=== PATIENT | female | born 1975 | race Caucasian/White ===

== ENCOUNTER 2016-07-02 13:14 | Observation (INO) | payer SELFPAY ==
[2016-07-02 13:52] VITALS: BMI 30.4
[2016-07-02 14:10] LABS: ALL NEG? NO
[2016-07-02 14:13] LABS: MPV 9.3 fL (7.4-10.4)
[2016-07-02 14:30] LABS: MDMA* NEG (NEGATIVE); METHAMPHETAMINES NEG (NEGATIVE); OXYCODONE NEG (NEGATIVE)
[2016-07-02 14:31] LABS: LEUKOCYTES/URINE NEG (NEGATIVE); NITRITE/URINE NEG (NEGATIVE); SEG NEUTROPHIL 61 % (45-76); TOTAL CELL COUNT 100; URINE OCCULT BLOOD NEG (NEG/TRACE)
[2016-07-02 14:32] LABS: RBC/URINE 0-2 (0-5); WBC/URINE 0-2 (0-5)
[2016-07-02 14:52] LABS: BLOOD UREA NITROGEN 10 MG/DL (7-17); CALCIUM 8.7 MG/DL (8.4-10.2); CALCULATED OSMOLALITY 270 MOs/Kg (270-290); CHLORIDE 105 mEq/L (98-107); ETOH-MGDL < 10 mg/dL; GLUCOSE 140 MG/DL (70-99); SODIUM LEVEL 140 mEq/L (137-146); TOTAL PROTEIN 7.9 G/DL (6.3-8.2)
[2016-07-02] MEDS ORDERED: ZOLPIDEM TARTRATE 5 MG TAB PO PRN (15:15)
[2016-07-02] MEDS ORDERED: LORAZEPAM 1 MG TAB PO PRN (15:15)
[2016-07-02] MEDS ORDERED: GUAIFENESIN 200 MG/10 ML UDC PO PRN (15:15)
[2016-07-02] MEDS ORDERED: Docusate Sodium 100 MG CAP PO PRN (15:15)
[2016-07-02] MEDS ORDERED: MAGNESIUM HYDROXIDE 30 ML BOTTLE PO PRN (15:15)
[2016-07-02] MEDS ORDERED: ONDANSETRON HCL 4 MG ODT TAB PO PRN (15:15)
[2016-07-02] MEDS ORDERED: ACETAMINOPHEN 325 MG/TAB TABLET PO PRN (15:15)
--- NOTE | 2016-07-02 15:15 | EDPRACDOC ---
- General Information Chief Complaint: Psychiatric Illness Stated Complaint: PSYCH EVAL Time Seen by Provider: 07/02/16 14:34 Information Source: Patient Mode of Arrival: Car Home Medications: Home Medications Azithromycin [Zithromax] 0 mg PO DAILY #6 tablet 08/28/15 Fluoxetine HCl [Prozac] 40 mg PO DAILY 08/28/15 Guaifenesin-Codeine [Robitussin AC] 10 ml PO Q6-8H 5 Days 08/28/15 Allergies/Adverse Reactions: Allergies Allergy/AdvReac Type Severity Reaction Status Date / Time aspirin Allergy Hives* Verified 07/02/16 13:52 ibuprofen [From Motrin] Allergy Anaphylaxis Verified 07/02/16 13:52 * - History of Present Illness Onset: 2 WEEKS HPI: PT PRESENTS TODAY WITH SI X 2 WEEKS. PT STATES THAT SHE RECENTLY LOST HER JOB AND THIS CAUSED HER TO BE HOMELESS. REPORTEDLY, PT IS STAYING WITH FRIENDS WHO CALLED [facility] WHEN PT EXPRESSED SI TO THEM. FRIENDS ARE NOT HERE, BUT REPORTEDLY, PT HAS BEEN STEALING PAIN MEDICATION FROM FRIENDS, WHO THEN KICKED PT OUT OF THE HOSPITAL. PT DOES ADMIT TO STEALING MEDICATIONS FROM FRIEND. PT STATES SHE STOLE THEM IN AN ATTEMPT TO OVERDOSE. DENIES HI, HALLUCINATIONS. Reason for Seeking Treatment: Friend Presents With: Reports: Suicidal Ideation Expresses: Reports: Suicidal Plan Suicidal Plan: Reports: Overdose Suicidal Attempt: Reports: N Stressors: Reports: Homeless, Financial Relevant History: Reports: Outpatient Treatment Medication Compliance: No Associated Signs and Symptoms: Reports: Depression, Hopeless ED Past Medical History - History Reviewed Yes Nurses notes reviewed and agree except as marked - Patient Medical History Psychological History: Reports: Depression Surgical History: Reports: Hysterectomy - Social Medical History Smoking Status: Heavy tobacco smoker (5 or more cigarettes/day or daily pipe/ cigar) EDM Review of Systems - Review of Systems ROS Negative Except as Marked: Yes All systems reviewed and were negative except as marked Constitutional: No Symptoms Reported Respiratory: No Symptoms Reported Cardiovascular: No Symptoms Reported Gastrointestinal: No Symptoms Reported Neurological: No Symptoms Reported Musculoskeletal: No Symptoms Reported Integumentary: No Symptoms Reported - Physical Exam Constitutional: Alert (Awake), No apparent distress Oriented to: Time, Person, Place Last recorded Vital Signs: Last Vital Signs Temp 98.3 F 07/02/16 13:49 Pulse 100 07/02/16 13:49 Resp 18 07/02/16 13:49 BP 145/65 07/02/16 13:49 Pulse Ox 96 07/02/16 13:49 Oxygen Pulse Oxygen Saturation 96 O2 Device Room Air Oxygen Flow Rate Fraction of Inspired Oxygen ( FIO2) - HEENT Head: Normal Eye Exam: Normal Oropharynx: Normal Neck: Normal, Denies Pain, Midline - Respiratory/Cardiovascular Respiratory: Normal - CTA Cardiovascular: Normal - GI Auscultation: Normal Palpation: Normal Tenderness: Non tender - Musculoskeletal Back: Normal Extremities: Normal - Integumentary Skin: Normal Lymphatics: Normal - Neurologic Cerebellar: Normal Mood Description: Appropriate, Calm Thought: Coherent Perception: Normal Initial Evaluation Apperance: Neat, Casual, Stated Age Attitude: Cooperative Mood: Euthymic Affect: Congruent w/ mood Insight: Poor Judgement: Poor Memory Description: Intact Depressive Symptoms: Reports: Sadness Hallucinations Severity: Reports: None Hallucinations affecting more than one sensory system: No - Results 07/02/16 13:59 07/02/16 13:59 WBC 21.0 xk/uL (3.8-10.8) H 07/02/16 13:59 RBC 5.36 xM/uL (4.20-5.40) 07/02/16 13:59 Hgb 15.7 g/dL (12.0-16.0) 07/02/16 13:59 Hct 46.4 % (36-47) 07/02/16 13:59 MCV 87 fL (81-99) 07/02/16 13:59 MCH 29.3 pg (27-32) 07/02/16 13:59 MCHC 33.8 g/dl (33-36) 07/02/16 13:59 RDW 13.6 % (11.5-14.5) 07/02/16 13:59 Plt Count 249 xk/uL (130-400) 07/02/16 13:59 MPV 9.3 fL (7.4-10.4) 07/02/16 13:59 Neut % (Auto) Cancelled 07/02/16 13:59 Lymph % (Auto) Cancelled 07/02/16 13:59 Clay % (Auto) Cancelled 07/02/16 13:59 Eos % (Auto) Cancelled 07/02/16 13:59 Baso % (Auto) Cancelled 07/02/16 13:59 Absolute Neuts (auto) Cancelled 07/02/16 13:59 Absolute Lymphs (auto) Cancelled 07/02/16 13:59 Seg Neuts % (Manual) 61 % (45-76) 07/02/16 13:59 Band Neutrophils % 0 % (0-5) 07/02/16 13:59 Lymphocytes % (Manual) 35 % (17-44) 07/02/16 13:59 Monocytes % (Manual) 2 % (0-10) 07/02/16 13:59 Myelocytes % 2 % (0) H 07/02/16 13:59 Absolute Neutrophils 12.81 xk/uL (1.7-8.2) H 07/02/16 13:59 Absolute Lymphocytes 7.35 xk/uL (0.65-4.75) H 07/02/16 13:59 Vacuolated Neuts 1+ 07/02/16 13:59 Toxic Granulation 1+ 07/02/16 13:59 Platelet Estimate Norm (NORMAL) 07/02/16 13:59 RBC Morphology Norm 07/02/16 13:59 Sodium 140 mEq/L (137-146) 07/02/16 13:59 Potassium 3.3 mEq/L (3.5-5.1) L 07/02/16 13:59 Chloride 105 mEq/L (98-107) 07/02/16 13:59 Carbon Dioxide 19 mMOL/L (22-33) L 07/02/16 13:59 Anion Gap 19 mEq/L (8-16) H 07/02/16 13:59 BUN 10 MG/DL (7-17) 07/02/16 13:59 Creatinine 0.80 MG/DL (0.52-1.04) 07/02/16 13:59 Estimated GFR (MDRD) > 60 mL/min (>=60) 07/02/16 13:59 Glucose 140 MG/DL (70-99) H 07/02/16 13:59 Calculated Osmolality 270 MOs/Kg (270-290) 07/02/16 13:59 Calcium 8.7 MG/DL (8.4-10.2) 07/02/16 13:59 Total Bilirubin 0.5 MG/DL (0.2-1.3) 07/02/16 13:59 AST 22 IU/L (14-36) 07/02/16 13:59 ALT 18 IU/L (9-52) 07/02/16 13:59 Alkaline Phosphatase 68 IU/L (38-126) 07/02/16 13:59 Total Protein 7.9 G/DL (6.3-8.2) 07/02/16 13:59 Albumin 4.3 G/DL (3.5-5.0) 07/02/16 13:59 Urine Color Yellow 07/02/16 13:59 Urine Clarity Clear 07/02/16 13:59 Urine pH 5.0 (5.0-8.0) 07/02/16 13:59 Ur Specific [place] 1.015 07/02/16 13:59 Urine Protein Neg (NEG/TRACE) 07/02/16 13:59 Urine Glucose (UA) Neg (NEGATIVE) 07/02/16 13:59 Urine Ketones Neg (NEGATIVE) 07/02/16 13:59 Urine Occult Blood Neg (NEG/TRACE) 07/02/16 13:59 Urine Nitrite Neg (NEGATIVE) 07/02/16 13:59 Urine Bilirubin Neg (NEGATIVE) 07/02/16 13:59 Urine Urobilinogen 0.2 MG/DL (0-1) 07/02/16 13:59 Ur Leukocyte Esterase Neg (NEGATIVE) 07/02/16 13:59 Urine RBC 0-2 (0-5) 07/02/16 13:59 Urine WBC 0-2 (0-5) 07/02/16 13:59 Ur Epithelial Cells 2+ 07/02/16 13:59 Urine Bacteria Few (NEG/FEW) 07/02/16 13:59 Hyaline Casts 0-2 (0-2) 07/02/16 13:59 Urine Mucus Occ (NEG/OCC) 07/02/16 13:59 Urine Opiates Screen *positive* (NEGATIVE) H 07/02/16 13:59 Ur Oxycodone Screen Neg (NEGATIVE) 07/02/16 13:59 Urine Methadone Screen Neg (NEGATIVE) 07/02/16 13:59 Ur Barbiturates Screen Neg (NEGATIVE) 07/02/16 13:59 Ur Tricyclics Screen Neg (NEGATIVE) 07/02/16 13:59 Ur Phencyclidine Scrn Neg (NEGATIVE) 07/02/16 13:59 Ur Amphetamines Screen Neg (NEGATIVE) 07/02/16 13:59 U Methamphetamines Scrn Neg (NEGATIVE) 07/02/16 13:59 Urine MDMA Screen Neg (NEGATIVE) 07/02/16 13:59 U Benzodiazepines Scrn Neg (NEGATIVE) 07/02/16 13:59 Urine Cocaine Screen Neg (NEGATIVE) 07/02/16 13:59 Ur THC Screen Neg (NEGATIVE) 07/02/16 13:59 Plasma/Serum Ethyl Alc % (<0.01) 07/02/16 13:59 Lab Results 07/02/16 07/02/16 07/02/16 13:59 13:59 13:59 WBC 21.0 H RBC 5.36 Hgb 15.7 Hct 46.4 MCV 87 MCH 29.3 MCHC 33.8 RDW 13.6 Plt Count 249 MPV 9.3 Neut % (Auto) Cancelled Lymph % (Auto) Cancelled [place] % (Auto) Cancelled Eos % (Auto) Cancelled Baso % (Auto) Cancelled Absolute Neuts (auto) Cancelled Absolute Lymphs (auto) Cancelled Seg Neuts % (Manual) 61 Band Neutrophils % 0 Lymphocytes % (Manual) 35 Monocytes % (Manual) 2 Myelocytes % 2 H Absolute Neutrophils 12.81 H Absolute Lymphocytes 7.35 H Vacuolated Neuts 1+ Toxic Granulation 1+ Platelet Estimate Norm RBC Morphology Norm Sodium Potassium Chloride Carbon Dioxide Anion Gap BUN Creatinine Estimated GFR (MDRD) Glucose Calculated Osmolality Calcium Total Bilirubin AST ALT Alkaline Phosphatase Total Protein Albumin Urine Color Yellow Urine Clarity Clear Urine pH 5.0 Ur Specific [place] 1.015 Urine Protein Neg Urine Glucose (UA) Neg Urine Ketones Neg Urine Occult Blood Neg Urine Nitrite Neg Urine Bilirubin Neg Urine Urobilinogen 0.2 Ur Leukocyte Esterase Neg Urine RBC 0-2 Urine WBC 0-2 Ur Epithelial Cells 2+ Urine Bacteria Few Hyaline Casts 0-2 Urine Mucus Occ Urine Opiates Screen *positive* H Ur Oxycodone Screen Neg Urine Methadone Screen Neg Ur Barbiturates Screen Neg Ur Tricyclics Screen Neg Ur Phencyclidine Scrn Neg Ur Amphetamines Screen Neg U Methamphetamines Scrn Neg Urine MDMA Screen Neg U Benzodiazepines Scrn Neg Urine Cocaine Screen Neg Ur THC Screen Neg Plasma/Serum Ethyl Alc 07/02/16 13:59 WBC RBC Hgb Hct MCV MCH MCHC RDW Plt Count MPV Neut % (Auto) Lymph % (Auto) [place] % (Auto) Eos % (Auto) Baso % (Auto) Absolute Neuts (auto) Absolute Lymphs (auto) Seg Neuts % (Manual) Band Neutrophils % Lymphocytes % (Manual) Monocytes % (Manual) Myelocytes % Absolute Neutrophils Absolute Lymphocytes Vacuolated Neuts Toxic Granulation Platelet Estimate RBC Morphology Sodium 140 Potassium 3.3 L Chloride 105 Carbon Dioxide 19 L Anion Gap 19 H BUN 10 Creatinine 0.80 Estimated GFR (MDRD) > 60 Glucose 140 H Calculated Osmolality 270 Calcium 8.7 Total Bilirubin 0.5 AST 22 ALT 18 Alkaline Phosphatase 68 Total Protein 7.9 Albumin 4.3 Urine Color Urine Clarity Urine pH Ur Specific [place] Urine Protein Urine Glucose (UA) Urine Ketones Urine Occult Blood Urine Nitrite Urine Bilirubin Urine Urobilinogen Ur Leukocyte Esterase Urine RBC Urine WBC Ur Epithelial Cells Urine Bacteria Hyaline Casts Urine Mucus Urine Opiates Screen Ur Oxycodone Screen Urine Methadone Screen Ur Barbiturates Screen Ur Tricyclics Screen Ur Phencyclidine Scrn Ur Amphetamines Screen U Methamphetamines Scrn Urine MDMA Screen U Benzodiazepines Scrn Urine Cocaine Screen Ur THC Screen Plasma/Serum Ethyl Alc - Additional Information Additional Information: PT EVALUATED BY YESSY AND IT IS FELT THAT PT IS MALINGERING D/T HOMELESSNESS. Decision Time to Discharge: 15:38 - Departure Disposition: Home Condition: Good Final Diagnosis: Opiate abuse, episodic, Malingering
[2016-07-02] MEDS ORDERED: NICOTINE 21 MG PATCH TOP SCH (16:00)
--- NOTE | 2016-07-02 17:43 | TUDEPART ---
Time Seen By Provider: 17:44 Disposition: [facility] [place] Condition: Stable Instructions: Narcotic Abuse (DC) Education/Counseling Given To: Patient Education/Counseling Given Regarding: Diagnosis, Treatment, Prognosis, Follow Up Follow-up / Referrals: None,No Provider [Primary Care Provider] - One Week - Physical Exam Constitutional: Alert (Awake), No apparent distress Oriented to: Time, Person, Place Last recorded Vital Signs: Last Vital Signs Temp 97.4 F L 07/02/16 15:47 Pulse 87 07/02/16 15:47 Resp 20 07/02/16 15:47 BP 121/80 07/02/16 15:47 Pulse Ox 96 07/02/16 15:47 Oxygen Pulse Oxygen Saturation 96 O2 Device Oxygen Flow Rate Fraction of Inspired Oxygen ( FIO2) - HEENT Head: Normal Eye Exam: Normal Oropharynx: Normal - Respiratory/Cardiovascular Respiratory: Normal - CTA Cardiovascular: Normal - GI Auscultation: Normal Palpation: Normal Tenderness: Non tender - Musculoskeletal Back: Normal Extremities: Normal - Integumentary Skin: Normal Lymphatics: Normal - Neurologic Cerebellar: Normal Mood Description: Appropriate, Calm Thought: Coherent Perception: Normal
[2016-07-02 17:45] VITALS: BP 138/74; PULSE 74; TEMP 98.6
== END 2016-07-02 18:00 | disposition home or self-care (01) ==
LOC: ED 13:14 → TUOBSINP 15:18
PROVIDERS: ADMIT Emergency Medicine; ATTEND Emergency Medicine
DX: F11.10 Opioid abuse, uncomplicated (principal); Z76.5 Malingerer [conscious simulation]
CPT/HCPCS: 36415; 80053; 80307; 81001; 85007; 85027; 86592; 99284; G0378; J3490